=== PATIENT | female | born 1965 | race Hispanic/Latino ===

== ENCOUNTER 2016-12-17 14:37 | Inpatient (IN) | payer MEDICAID ==
[2016-12-17 15:44] LABS: BASO # 0.1 K/uL (0.0-0.2); EOS # 0.1 K/uL (0.0-0.7); EOS % 1.2 % (0.0-4.0); HEMATOCRIT 37.3 % (34.0-47.0); LYMPH # 3.8 K/uL (1.0-4.3); LYMPH % 48.5 % (20.0-40.0); MEAN CELL VOLUME 97.3 fL (81.0-99.0); MEAN CORPUSCULAR HEMOGLOBIN 33.8 pg (27.0-31.0); MEAN CORPUSCULAR HGB CONC 34.7 g/dL (33.0-37.0); MONO # 0.5 K/uL (0.0-0.8); MONO % 6.5 % (0.0-10.0); NRBC % 0.1 % (0.0-2.0); RED CELL DISTRIBUTION WIDTH 12.7 % (11.5-14.5); WHITE BLOOD COUNT 7.7 K/uL (4.8-10.8)
[2016-12-17 15:48] LABS: RBC URINE < 1 /hpf (0-3); URINE BILIRUBIN NEGATIVE (NEGATIVE); URINE BLOOD NEGATIVE (NEGATIVE); URINE COLOR Straw (YELLOW); URINE GLUCOSE (UA) NORMAL (Normal); URINE KETONE NEGATIVE (NEGATIVE); URINE LEUKOCYTE ESTERASE NEG Leu/uL (Negative); URINE PROTEIN NEGATIVE (NEGATIVE); URINE UROBILINOGEN NORMAL mg/dL (0.2-1.0)
[2016-12-17 15:50] LABS: CHLORIDE 99 mmol/L (98-107); SODIUM 134 mmol/L (132-148)
[2016-12-17 15:51] LABS: POTASSIUM 3.7 mmol/L (3.6-5.2)
[2016-12-17 15:53] LABS: ALKALINE PHOSPHATASE 116 U/L (38-126); AST/SGOT 397 U/L (14-36); BILIRUBIN,TOTAL 0.8 mg/dL (0.2-1.3); BLOOD UREA NITROGEN 11 mg/dL (7-17); CARBON DIOXIDE 24 mmol/L (22-30); GFR AFRICAN-AMERICAN > 60; GLUCOSE,RANDOM 93 mg/dL (65-105); TOTAL PROTEIN 7.5 g/dL (6.3-8.3)
[2016-12-17 15:54] LABS: ALCOHOL SERUM 225 mg/dl (0-10); ALT/SGPT 354 U/L (9-52); CALCIUM 8.5 mg/dl (8.6-10.4)
--- NOTE | 2016-12-17 16:12 | C.PDOC ---
History Of Present Illness 51 year old female presents to the emergency department seeking detox from alcohol. Patient states she has about 4-5 large beers a day with last drink just prior to arrival. She denies any physical complaints, suicidal, or homicidal ideations. Time Seen by Provider: 12/17/16 15:10 Chief Complaint (Nursing): Psychiatric Evaluation History Per: Patient History/Exam Limitations: no limitations Suicide/Self Injury Attempted (Context): None Severity: None Pain Scale Rating Of: 0 Associated Symptoms: denies: Suicidal Thoughts, Suicidal Plan Involuntary Hold By: None Recent travel outside of the [place]: No Past Medical History Reviewed: Historical Data, Nursing Documentation, Vital Signs Vital Signs: Last Vital Signs Temp 99.0 F 12/17/16 20:21 Pulse 78 12/17/16 20:21 Resp 18 12/17/16 20:21 BP 116/80 12/17/16 20:21 Pulse Ox 98 12/17/16 18:47 - Medical History PMH: Anxiety, Depression, Fractures (right ankle), GERD, HTN - [facility] Procedures ALCOHOL DETOXIFICATION (10/09/14) ALCOHOLISM COUNSELLING (08/14/13) INDIVID PSYCHOTHERAP NEC (07/31/14) INJECT/INFUSE NEC (04/17/14) OTHER GROUP THERAPY (07/31/14) PSYCHIA INTERV/EVAL NEC (08/10/13) Family History: States: Unknown Family Hx - Social History Hx Tobacco Use: Yes Hx Alcohol Use: Yes Hx Substance Use: No - Immunization History Hx Tetanus Toxoid Vaccination: Yes Hx Influenza Vaccination: No Hx Pneumococcal Vaccination: No Review Of Systems Constitutional: Negative for: Fever, Chills Cardiovascular: Negative for: Chest Pain Respiratory: Negative for: Shortness of Breath Gastrointestinal: Negative for: Nausea, Vomiting, Abdominal Pain, Diarrhea Psych: Negative for: Suicidal ideation Physical Exam - Physical Exam Appears: Non-toxic, No Acute Distress, Other (Patient has no signs of withdrawl. ) Skin: Warm, Dry Head: Atraumatic Eye(s): bilateral: Normal Inspection, EOMI Oral Mucosa: Moist Neck: Supple Chest: Symmetrical, No Deformity Cardiovascular: Rhythm Regular Respiratory: Normal Breath Sounds, No Rhonchi, No Wheezing Gastrointestinal/Abdominal: Soft, No Tenderness, No Distention, No Guarding, No Rebound Neurological/Psych: Oriented x3, Normal Speech, Normal Cognition, Normal Cranial Nerves, Normal Motor, Normal Sensation ED Course And Treatment - Laboratory Results Result Diagrams: 12/17/16 15:33 12/17/16 15:33 O2 Sat by Pulse Oximetry: 97 Disposition - Disposition Disposition: HOSPITALIZED Disposition Time: 18:00 Condition: GOOD - Clinical Impression Clinical Impression: Alcohol dependence - Scribe Statement The provider has reviewed the documentation as recorded by the Katjaibbibiana Solorzano All medical record entries made by the Katjaibbibiana were at my direction and personally dictated by me. I have reviewed the chart and agree that the record accurately reflects my personal performance of the history, physical exam, medical decision making, and the department course for this patient. I have also personally directed, reviewed, and agree with the discharge instructions and disposition.
--- NOTE | 2016-12-17 20:40 | PCM.BM ---
<SaraiGeraldine Hollis - Last Filed: 12/17/16 20:37> Treatment Plan Problems - Problems identified on initial assessmt Ineffective Coping Skills Date Initiated: 12/17/16 Time Initiated: 20:38 Assessment reference: NA Status: Active Treatment assets and liabiliti Patient Assests: ADL independent Patient Liabilities: substance abuse - Milieu Protocol Maintain good personal hygiene: daily Encourage regular showers, daily Remind patient to perform daily oral care, other Assist patient to perform ADL's (PRN) Maintain personal safety: every shift Educate patient to report safety concerns to staff, every shift Monitor environment for contraband/sharps Medication safety: Monitor for expected outcome, potential side effects: every shift, Assess barriers to learning: every shift, Assess readiness for medication education: every shift <Gibran Mccormick - Last Filed: 12/20/16 14:28> - Diagnosis (1) Alcohol dependence Status: Acute Interventions: 12/20/16 14:28 * Assess 7x/week regarding severity of withdrawal * Educate regarding risks, benefits, side effects and alternatives of medications * Use Motivational Interviewing for abstinence * Use CBT for relapse prevention * Medication management for withdrawal symptoms * Encourage medication assisted treatment * <Jessica Sawyer - Last Filed: 12/22/16 08:22> Family Contact Family involvement: Patient does not wish Family/SO involvement Family contact: Patient declines to allow family contact at present - Goals for Treatment Patient goals for treatment: Transition from detox to [facility] for co-occurring treatment outpatient. Discharge/Continuing Care - Education Needs Education Needs: Patient Medication, Patient Diagnosis/Disease Process, Patient Coping Skills, Patient Anger Management skills, Patient Community resources - Discharge Discharge Criteria: No longer exhibiting s/s of withdrawal, Reduction of target symptoms Discharge to:: Home - Treatment Team Participation Patient/Family/SO Statement: 12/22/16 08:22 "I wanna go across the street to your outpatient program". Discussed with Family/SO: No Was Patient/Family/SO present at Treatment Team Meeting: Yes
[2016-12-18] MEDS: Multiple Vitamins Tab PO SCH (09:43)
--- NOTE | 2016-12-18 22:24 | PCM.PSYCH ---
Initial Psychiatric Evaluation - Initial Psychiatric Evaluation Chief Complaint (in patient's own words): I want etoh detox History of Present Illness and Precipitating Events: This is a 51 year old female presents to the emergency department seeking detox from alcohol. Patient states she has about 4-5 large beers a day with last drink just prior to arrival at ED. Pt reported that she start drinking etoh at the age of 18. she stated she her symptoms started worsening for 3 months as she started drinking large 4-5 cans of beers with henessey.+ve CAGE questionnaire, positive withdrawal symptoms such as shakes, headaches, tremors, n/v. No sz. or black ut. She stated that she was not eating or drinking water good for last 1 week. She reported her she was taking Klonopin daily which was provided by PCP Dr. Wolf. She denied depressive symptoms. She denies any physical complaints, suicidal, or homicidal ideations. She denied A/V/H, Tactile hallucination. She reported she had PTSD, but on inquiring she denied all PTSD sx. Current Medications: Active Medications Generic Name Dose Route Start Last Admin Trade Name Freq PRN Reason Stop Dose Admin Enalapril Maleate 10 mg 12/18/16 12:49 12/18/16 18:00 Vasotec PO 10 mg BID KEVIN Administration Folic Acid 1 mg 12/18/16 10:00 12/18/16 09:43 Folic Acid PO 1 mg DAILY KEVIN Administration Lorazepam 2 mg 12/17/16 20:45 12/18/16 20:13 Ativan PO 12/22/16 20:44 2 mg Q4 KEVIN Administration Taper Lorazepam 1 mg 12/17/16 20:37 12/18/16 05:38 Ativan PO 1 mg Q4H PRN Administration Symptoms of alcohol withdrawl Multivitamins 1 tab 12/18/16 10:00 12/18/16 09:43 Hexavitamin PO 1 tab DAILY KEVIN Administration Thiamine HCl 100 mg 12/18/16 10:00 12/18/16 09:43 Vitamin B1 Tab PO 100 mg DAILY KEVIN Administration Trazodone HCl 50 mg 12/17/16 20:37 Desyrel PO HS PRN Insomnia Past Psychiatric History - Past Psychiatric History Prior Professional Help: multiple detox in past Prior Psychiatric Treatment: last detox was at [facility] [place] in 08/2016 History of Abuse: denied History of ETOH/Drug Use: please see HPI, She reported that she smokes 3-4 cigarette per day. she has nicotine craving and asked nicotine patch Pertinent Medical Hx (Current Medical&Sleep Prob, Allergies): Allergies Allergy/AdvReac Type Severity Reaction Status Date / Time No Known Allergies Allergy Verified 12/17/16 15:06 Enalapril Maleate [Vasotec] 10 mg PO BID 07/14/16 Ranitidine HCl [Zantac] 300 mg PO DAILY 07/14/16 clonazePAM [Klonopin] 1 mg PO TID 07/14/16 hydroCHLOROthiazide [Microzide] 12.5 mg PO DAILY 07/14/16 Clonazepam [Klonopin] 1 mg PO DAILY #5 tab 08/06/16 Review of Systems - Review of Systems All systems: reviewed and no additional remarkable complaints except (see HPI) Mental Status Examination - Personal Presentation Personal Presentation: Looks stated age Additional comments: positive tremors and tongue fasiculations, cooperative, fair grooming - Affect Affect: Constricted - Motor Activity Motor Activity: Calm - Reliability in Providing Information Reliability in Providing Information: Good - Speech Speech: Other (slurred) - Mood Mood: Anxious - Formal Thought Process Formal Thought Process: No Impairment - Hallucinations/Delusions Hallucinations: Other (none reported) - Obsessions/Compulsions Obsessions: No Compulsions: No - Cognitive Functions Orientation: Person, Place, Situation, Time Sensorium: Alert Attention/Concentration: Attentive Estimate of Intelligence: Average Judgement: Intact, as evidence by: Good judgement, Intact, as evidence by: Insight regarding need for hospitalization Memory: Recent intact, as evidence by: Ability to recall events of the day Additional comments: no SI, HI, intent or plan - Strength & Assets Inventory Strength & Assets Inventory: Family support, Education, Employment history, Skills - Limitations Limitations: Other (chronic etoh use problem) DSM 5 DX - DSM 5 DSM 5 Diagnosis: Alcohol use disorder severe, withdrawal - Recommended/Plan of Treatment Treatment Recommendations and Plan of Treatment: Ativan detox Gabapentin for augmentation As needed meds and vitamins Attend groups and activities [place] for abstinence and CBT for relapse prevention Support and psychoeducation Consider and encourage MAT Refer to after care 33 min Projected ELOS: 5 days Prognosis: fair Discharge Plan and Discharge Criteria: as per SW - Smoking Cessation Smoking Cessation Initiated: Yes
[2016-12-19] MEDS: Multiple Vitamins Tab PO SCH (09:12)
[2016-12-19] MEDS: Aluminum Hydroxide/Magnesium Hydroxide Susp (30 mL) PO PRN (13:03)
[2016-12-19] MEDS: Pantoprazole 20 mg EC Tab PO SCH (17:34)
--- NOTE | 2016-12-19 17:54 | PCM.PYCHPN ---
Psychiatric Progress Note - Psychiatric Progress Note Patient seen today, length of contact: 17 MINUTES Patient Chief Complaint: "I have GERD problem" Problems Identified/Issues Discussed: The pt is seen, chart reviewed, case discussed with staff. The pt is compliant with medications and reports no side-effects. She reported that she had GERD problem and want to start on medication. Her BP was high and she was started on her anti HTN home meds after verifying with the pharmacy. Symptoms are improving but needs more time to stabilize. After care discussed, support and psychoeducation given. Medical Problems: Alcohol use disorder severe, withdrawal HTN DSM 5 Symptoms Update: Alcohol use disorder severe, withdrawal Medication Change: Yes (pt is on ativan taper) Medical Record Reviewed: Yes Mental Status Examination - Cognitive Function Orientation: Person, Place, Situation, Time Memory: Intact Attention: WNL Concentration: WNL Association: WNL Fund of Knowledge: WNL Decription of patient's judgement and insights: fair/fair - Mood Mood: Anxious - Affect Affect: Constricted - Speech Speech: Appropriate - Formal Thought Process Formal Thought Process: No Impairment Psychotic Thoughts and Behaviors: no A/V/H - Suicidal Ideation Suicidal Ideation: No - Homicidal Ideation Homicidal Ideation: No Goal/Treatment Plan - Goal/Treatment Plan Need for Continued Stay: Remain at risks for inpatient hospitalization, Discharge may exacerbated symptoms Progress Toward Problem(s) and Goals/Treatment Plan: Ativan detox Gabapentin for augmentation As needed meds and vitamins Attend groups and activities [place] for abstinence and CBT for relapse prevention Support and psychoeducation Consider and encourage MAT Refer to after care 17 min Estimated Date of D/C: 12/22/16 - Smoking Cessation Smoking Cessation Initiated: Yes
[2016-12-20] MEDS: Pantoprazole 20 mg EC Tab PO SCH ×2 (09:03→09:59)
[2016-12-20] MEDS: Multiple Vitamins Tab PO SCH ×2 (09:04→09:59)
[2016-12-20 14:11] LABS: CHLORIDE 94 mmol/L (98-107); POTASSIUM 4.1 mmol/L (3.6-5.2); SODIUM 133 mmol/L (132-148)
[2016-12-20 14:13] LABS: AST/SGOT 161 U/L (14-36); BILIRUBIN,TOTAL 0.5 mg/dL (0.2-1.3); CARBON DIOXIDE 28 mmol/L (22-30); GFR AFRICAN-AMERICAN > 60; TOTAL PROTEIN 7.1 g/dL (6.3-8.3)
[2016-12-20 14:14] LABS: ALKALINE PHOSPHATASE 105 U/L (38-126); ALT/SGPT 208 U/L (9-52); BLOOD UREA NITROGEN 15 mg/dL (7-17); GLUCOSE,RANDOM 109 mg/dL (65-105)
--- NOTE | 2016-12-20 14:28 | PCM.PYCHPN ---
Psychiatric Progress Note - Psychiatric Progress Note Patient seen today, length of contact: 18 min Patient Chief Complaint: "A little better" Problems Identified/Issues Discussed: The pt is seen, chart reviewed, case discussed with staff. Support given, CBT and ME used briefly No new symptoms reported, improving slowly and needs some more time No SEs from medications, risks discussed. After care discussed Medication Change: Yes (detox adjusted) Medical Record Reviewed: Yes Mental Status Examination - Cognitive Function Orientation: Person, Place, Situation, Time Memory: Intact Attention: WNL Concentration: WNL Association: WNL Fund of Knowledge: WNL - Mood Mood: Anxious - Affect Affect: Constricted - Speech Speech: Appropriate - Formal Thought Process Formal Thought Process: No Impairment - Suicidal Ideation Suicidal Ideation: No - Homicidal Ideation Homicidal Ideation: No Goal/Treatment Plan - Goal/Treatment Plan Need for Continued Stay: Remain at risks for inpatient hospitalization, Discharge may exacerbated symptoms Progress Toward Problem(s) and Goals/Treatment Plan: Continue medications Support and psychoeducation daily Attend groups and activities daily After care planning by RYAN Estimated Date of D/C: 12/22/16
[2016-12-20 15:03] LABS: THYROID STIMULATING HORMONE 1.82 mIU/L (0.46-4.68)
[2016-12-20] MEDS: Aluminum Hydroxide/Magnesium Hydroxide Susp (30 mL) PO PRN (16:23)
--- NOTE | 2016-12-21 08:54 | PCM.PYCHPN ---
Psychiatric Progress Note - Psychiatric Progress Note Patient seen today, length of contact: 16 min Patient Chief Complaint: "I feel pretty good" Problems Identified/Issues Discussed: Patient is seen, chart reviewed, and case discussed with staff. The patient is compliant with medications and reports no side effects. Patient says she is feeling "pretty good." She slept okay and had no shakiness or sweating overnight. Her symptoms are improving but need more time to stabilize. After care discussed, support and psychoeducation given. Patient planning to go to [facility] after discharge. Medication Change: Yes (detox adjusted) Medical Record Reviewed: Yes Mental Status Examination - Cognitive Function Orientation: Person, Place, Situation, Time Memory: Intact Attention: WNL Concentration: WNL Association: WNL Fund of Knowledge: WNL - Mood Mood: Neutral - Affect Affect: Constricted - Speech Speech: Appropriate - Formal Thought Process Formal Thought Process: No Impairment - Suicidal Ideation Suicidal Ideation: No - Homicidal Ideation Homicidal Ideation: No Goal/Treatment Plan - Goal/Treatment Plan Need for Continued Stay: Remain at risks for inpatient hospitalization, Discharge may exacerbated symptoms Progress Toward Problem(s) and Goals/Treatment Plan: Continue medications. Support and psychoeducation daily. Attend groups and activities daily. After care planning-- plan for IOP. Estimated Date of D/C: 12/22/16 - Smoking Cessation Smoking Cessation Initiated: Yes
[2016-12-21] MEDS: Pantoprazole 20 mg EC Tab PO SCH (09:10)
[2016-12-21] MEDS: Multiple Vitamins Tab PO SCH (09:11)
[2016-12-21] MEDS: Aluminum Hydroxide/Magnesium Hydroxide Susp (30 mL) PO PRN (17:11)
--- NOTE | 2016-12-22 06:27 | CP.PCM.PN ---
Subjective - Date & Time of Evaluation Date of Evaluation: 12/22/16 Time of Evaluation: 06:25 - Subjective Subjective: House Doctor Note: Asked to evaluate patient after rolling off side of bed while sleeping. Patient states she fell onto her left hip/ buttock, denies hitting her head or losing consciousness. Patient did not report event at the time of occurrence. Patient ambulating well, denies pain at site. On exam, no ecchymosis noted to left hip. Full ROM, 5/5 muscle strength b/l lower extremities. CN II-XII intact, pt AAOx3. Lungs CTA b/l and heart sounds S1, S2 normal. Patient instructed to inform staff if she develops pain. Objective - Vital Signs/Intake and Output Vital Signs (last 24 hours): Temp Pulse Resp BP Pulse Ox 98.7 F 95 H 20 107/74 95 12/22/16 06:00 12/22/16 06:00 12/22/16 06:00 12/22/16 06:00 12/22/16 06:00 - Medications Medications: Current Medications Al Hydrox/Mg Hydrox/Simethicone (Maalox 30 Ml) 30 ml PO TID PRN PRN Reason: Indigestion / Heartburn Last Admin: 12/21/16 17:11 Dose: 30 ml Enalapril Maleate (Vasotec) 10 mg PO BID [facility] Last Admin: 12/21/16 17:12 Dose: 10 mg Folic Acid (Folic Acid) 1 mg PO DAILY [facility] Last Admin: 12/21/16 09:10 Dose: 1 mg Hydrochlorothiazide (Microzide) 12.5 mg PO DAILY [facility] Last Admin: 12/21/16 09:10 Dose: 12.5 mg Ibuprofen (Motrin Tab) 400 mg PO Q4 PRN Last Admin: 12/21/16 13:41 Dose: 400 mg Lorazepam (Ativan) 1 mg PO Q4H PRN PRN Reason: Symptoms of alcohol withdrawl Last Admin: 12/21/16 15:52 Dose: 1 mg Lorazepam (Ativan) 2 mg PO BID [facility] Stop: 12/22/16 10:01 Last Admin: 12/21/16 17:12 Dose: 2 mg Multivitamins (Hexavitamin) 1 tab PO DAILY [facility] Last Admin: 12/21/16 09:11 Dose: 1 tab Nicotine (Nicoderm Cq) 1 patch TD DAILY KEVIN Last Admin: 12/21/16 09:10 Dose: 1 patch Pantoprazole Sodium (Protonix Ec Tab) 20 mg PO DAILY KEVIN Last Admin: 12/21/16 09:10 Dose: 20 mg Thiamine HCl (Vitamin B1 Tab) 100 mg PO DAILY [facility] Last Admin: 12/21/16 09:10 Dose: 100 mg Trazodone HCl (Desyrel) 50 mg PO HS PRN PRN Reason: Insomnia Last Admin: 12/19/16 21:04 Dose: 50 mg - Labs Labs: 12/20/16 13:57
[2016-12-22] MEDS: Multiple Vitamins Tab PO SCH (09:11)
[2016-12-22] MEDS: Pantoprazole 20 mg EC Tab PO SCH (09:11)
[2016-12-22 09:19] VITALS: BP 130/88; PULSE 81; RESP 18; TEMP 98; O2SAT 96
--- NOTE | 2016-12-22 10:21 | PCM.PYCHDC ---
Mental Status Examination - Mental Status Examination Orientation: Person, Place, Situation, Time Memory: Intact Mood: Neutral Affect: Constricted Speech: Soft Attention: WNL Concentration: WNL Association: WNL Fund of Knowledge: WNL Formal Thought Process: No Impairment Description of patient's judgement and insight: good, fair Psychotic Thoughts and Behaviors: denies any AVH Suicidal Ideation: No Current Homicidal Ideation?: No Discharge Summary - Discharge Note Reason for Hospitalization: This is a 51 year old female presents to the emergency department seeking detox from alcohol. Patient states she has about 4-5 large beers a day with last drink just prior to arrival at ED. Pt reported that she start drinking etoh at the age of 18. she stated she her symptoms started worsening for 3 months as she started drinking large 4-5 cans of beers with henessey.+ve CAGE questionnaire, positive withdrawal symptoms such as shakes, headaches, tremors, n/v. No sz. or black ut. She stated that she was not eating or drinking water good for last 1 week. She reported her she was taking Klonopin daily which was provided by PCP Dr. Wolf. She denied depressive symptoms. She denies any physical complaints, suicidal, or homicidal ideations. She denied A/V/H, Tactile hallucination. She reported she had PTSD, but on inquiring she denied all PTSD sx. Consultations:: List each consultation separately and include: 1. Reason for request. 2. Findings. 3. Follow-up Summary of Hospital Course include:: 1. Description of specific treatment plan utilized for patients during their course of treatmen. 2. Summarize the time- course for resolution of acute symptoms and/or regressed behaviors. 3. Describe issues identified and worked on during hospitalization. 4. Describe medication utilized. 5. Describe medical problems identified and treated. 6. Reassessment of suicide risk Summary of Hospital Course: During the course of her stay, pt started progressively improving and she no longer remained irritable and anxious. She tolerated the withdrawal protocol very well. She didnt have any shakes, sweating or any other withdrawal symptoms. She denied any feelings of hopelessness, helplessness, and worthlessness, denied any problems with the sleep and appetite, denied suicidal ideation or homicidal ideation, and denied any auditory or visual hallucinations. Some changes were made in her current medications. She was discharged on the following medications. She tolerated the detox medications very well and denied any side effects. - Final Diagnosis (DSM 5) Condition upon Discharge: GOOD DSM 5: Alcohol use disorder severe, withdrawal Disposition: HOME/ ROUTINE Follow-up Treatment Plan: Education: Pt was educated and counseled about the risks and benefits of taking and not taking medications. Pt was educated and counseled about the risks of drinking and abusing drugs. Pt was educated and counseled to go to the ER or call 911 if pt develop suicidal ideation or homicidal ideation, worsening of symptoms or severe side effects of the meds. Prescriptions/Medication Reconciliation: Enalapril Maleate [Vasotec] 10 mg PO BID #60 tab hydroCHLOROthiazide [Microzide] 12.5 mg PO DAILY #30 cap Pantoprazole [Protonix EC Tab] 20 mg PO DAILY #30 ect - Smoking Cessation Smoking Cessation Medication prescribed: No - Antipsychotic Medications Pt discharged on 2 or more routine antipsychotic medications: No
== END 2016-12-22 10:45 | disposition home or self-care (01) | DRG 751 ==
LOC: C.ER 14:37 → C.7D 19:19
PROVIDERS: ADMIT Psychiatry & Neurology Psychiatry; ATTEND Psychiatry & Neurology Psychiatry
PROC: HZ2ZZZZ Detoxification Services for Substance Abuse Treatment (ICD-10-PCS; principal; 2016-12-17)
PROC: HZ46ZZZ Group Counseling for Substance Abuse Treatment, Psychoeducation (ICD-10-PCS; 2016-12-17)
PROC: HZ59ZZZ Individual Psychotherapy for Substance Abuse Treatment, Supportive (ICD-10-PCS; 2016-12-17)
DX: F10.230 Alcohol dependence with withdrawal, uncomplicated (principal); F43.10 Post-traumatic stress disorder, unspecified; K21.9 Gastro-esophageal reflux disease without esophagitis; I10 Essential (primary) hypertension; F17.210 Nicotine dependence, cigarettes, uncomplicated

== ENCOUNTER 2018-07-03 06:18 | Emergency (ER) | payer MEDICAID ==
[2018-07-03 06:18] VITALS: BMI 31.7
--- NOTE | 2018-07-03 06:34 | C.PDOC ---
History Of Present Illness 52 year old female with PMHx is brought to the ED by EMS for evaluation of anxiety. Patient was recently seen at [facility] for same presentation, patient was given 0.5 mg of xanax there. Patient requesting for more medications. Patient denies SI/HI, hallucinations, injury, fall, trauma, CP, SOB. Chief Complaint (Nursing): Anxiety History Per: Patient History/Exam Limitations: no limitations Onset/Duration Of Symptoms: Hrs Current Symptoms Are (Timing): Still Present Suicide/Self Injury Attempted (Context): None Modifying Factor(s): Narcotics Associated Symptoms: Anxiety. denies: Depression, Suicidal Thoughts, Suicidal Plan Recent travel outside of the [place]: No Additional History Per: Patient Past Medical History Reviewed: Historical Data, Nursing Documentation, Vital Signs - Medical History PMH: Anxiety, Depression, Gastritis, GERD Denies: Diabetes, Hepatitis, HIV, HTN, Chronic Kidney Disease, Seizures, Sexually Transmitted Disease Surgical History: No Surg Hx - [facility] Procedures ALCOHOL DETOXIFICATION (10/09/14) ALCOHOLISM COUNSELLING (08/14/13) DETOXIFICATION SERVICES FOR SUBSTANCE ABUSE TREATMENT (12/17/16) GROUP SUPER[employer]OR [employer] PROCESSING FOR SUBSTANCE ABUSE TREATMENT, PSYCHOEDUCATION (12/17/16) INDIV PSYCHOTHERAPY FOR SUBSTANCE ABUSE TREATMENT, SUPPORT (12/17/16) INDIVID PSYCHOTHERAP NEC (07/31/14) INDIVIDUAL PSYCHOTHERAPY, COGNITIVE-BEHAVIORAL (03/25/18) INJECT/INFUSE NEC (04/17/14) OTHER GROUP THERAPY (07/31/14) PSYCHIA INTERV/EVAL NEC (08/10/13) Family History: States: Unknown Family Hx - Social History Hx Tobacco Use: Yes Hx Alcohol Use: Yes Hx Substance Use: No (denies) Review Of Systems Constitutional: Negative for: Fever, Chills Cardiovascular: Negative for: Chest Pain Respiratory: Negative for: Shortness of Breath Gastrointestinal: Negative for: Nausea, Vomiting, Abdominal Pain Psych: Positive for: Anxiety Physical Exam - Physical Exam Appears: Non-toxic, No Acute Distress Skin: Normal Color, Warm, Dry Head: Atraumatic, Normacephalic Eye(s): bilateral: Normal Inspection Neck: Normal ROM, Supple Chest: Symmetrical Cardiovascular: Rhythm Regular Respiratory: Normal Breath Sounds, No Rales, No Rhonchi, No Wheezing Extremity: Normal ROM, No Tenderness, No Swelling Neurological/Psych: Oriented x3, Normal Speech, Normal Cognition Gait: Steady ED Course And Treatment Pulse Ox Interpretation: Normal Medical Decision Making Medical Decision Making: [place] [facility] record was reviewed showed that patient gets 90 tablets of Xanax every month. last time patient received her xanax was on 06/06/18. Disposition Counseled Patient/Family Regarding: Diagnosis - Disposition Referrals: [facility] [Outside] Disposition: HOME/ ROUTINE Disposition Time: 06:33 Condition: STABLE Instructions: Drug Abuse and Drug Addiction (DC) Forms: CoverMe (Angolan) - POA Present On Arrival: None - Clinical Impression Clinical Impression: Drug abuse - Scribe Statement The provider has reviewed the documentation as recorded by the Scribe Rcaiel Fuller All medical record entries made by the Scribe were at my direction and personally dictated by me. I have reviewed the chart and agree that the record accurately reflects my personal performance of the history, physical exam, medical decision making, and the department course for this patient. I have also personally directed, reviewed, and agree with the discharge instructions and disposition.
[2018-07-03 06:47] VITALS: BP 150/83; TEMP 98.2
[2018-07-03 06:54] VITALS: PULSE 80; RESP 14; O2SAT 99
== END 2018-07-03 06:54 | disposition home or self-care (01) ==
LOC: C.ER 06:18
DX: F19.10 Other psychoactive substance abuse, uncomplicated (principal)

== ENCOUNTER 2018-07-03 15:26 | Inpatient (IN) | payer MEDICAID ==
[2018-07-03 15:26] VITALS: BMI 34.3
[2018-07-03 17:37] LABS: ALB/GLOB RATIO 1.2 (1.0-2.1); ALBUMIN 4.8 g/dL (3.5-5.0); ALT/SGPT 155 U/L (9-52); AST/SGOT 144 U/L (14-36); BLOOD UREA NITROGEN 9 mg/dL (7-17); CALCIUM 9.1 mg/dl (8.6-10.4); GFR NON-AFRICAN AMERICAN > 60
[2018-07-03 17:39] LABS: BASO % 0.7 % (0.0-2.0); EOS # 0.1 K/uL (0.0-0.7); EOS % 1.2 % (0.0-4.0); HEMOGLOBIN 13.6 g/dL (11.0-16.0); LYMPH # 3.1 K/uL (1.0-4.3); LYMPH % 42.8 % (20.0-40.0); MEAN CELL VOLUME 95.5 fL (81.0-99.0); MEAN CORPUSCULAR HEMOGLOBIN 32.3 pg (27.0-31.0); MEAN CORPUSCULAR HGB CONC 33.8 g/dL (33.0-37.0); MEAN PLATELET VOLUME 8.9 fL (7.2-11.7); MONO # 0.6 K/uL (0.0-0.8); MONO % 8.2 % (0.0-10.0); NEUT # 3.5 K/uL (1.8-7.0); NEUT % 47.1 % (50.0-75.0); NRBC % 0.2 % (0.0-2.0); RBC 4.21 Mil/uL (3.80-5.20); RED CELL DISTRIBUTION WIDTH 13.3 % (11.5-14.5); WHITE BLOOD COUNT 7.3 K/uL (4.8-10.8)
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
[2018-07-03 18:02] LABS: SQUAMOUS EPITHIAL < 1 /hpf (0-5); URINE BILIRUBIN NEGATIVE (NEGATIVE); URINE BLOOD NEGATIVE (NEGATIVE); URINE CLARITY Clear (Clear); URINE COLOR Yellow (YELLOW); URINE GLUCOSE (UA) NORMAL (Normal); URINE LEUKOCYTE ESTERASE NEG Leu/uL (Negative); URINE PROTEIN NEGATIVE (NEGATIVE)
[2018-07-03 18:04] LABS: BARBITURATES, UR NEGATIVE (NEGATIVE); OPIATES, UR NEGATIVE (NEGATIVE); PHENCYCLIDINE, UR NEGATIVE (NEGATIVE)
[2018-07-03 18:10] LABS: BENZODIAZEPINES, UR POSITIVE (NEGATIVE)
--- NOTE | 2018-07-03 19:41 | PCM.BM ---
Treatment Plan Problems - Problems identified on initial assessmt knowledge drlicit; substance use Date Initiated: 07/03/18 Time Initiated: 19:39 Assessment reference: NA Status: Active low motivation to change Date Initiated: 07/03/18 Time Initiated: 19:41 Assessment reference: NA Status: Active ineffective coping Date Initiated: 07/03/18 Time Initiated: 19:41 Assessment reference: NA Status: Active denial Date Initiated: 07/03/18 Time Initiated: 19:42 Assessment reference: NA Status: Active Treatment assets and liabiliti Patient Assests: adapts well, cooperative, resourceful, negotiates basic needs Patient Liabilities: substance abuse, medical problems - Milieu Protocol Maintain good personal hygiene: daily Encourage regular showers, daily Remind patient to perform daily oral care, daily Assist patient to perform ADL's Conduct patient checks and document Observation sheet: Q15 minutes Maintain personal safety: every shift Educate patient to report safety concerns to staff, every shift Monitor environment for contraband/sharps Medication safety: Monitor for expected outcome, potential side effects: every shift, Assess barriers to learning: every shift, Assess readiness for medication education: every shift
--- NOTE | 2018-07-03 19:58 | PCM.BM ---
<Tacos Watkins - Last Filed: 07/03/18 19:57> Treatment Plan Problems - Problems identified on initial assessmt knowledge drlicit; substance use Date Initiated: 07/03/18 Time Initiated: 19:39 Assessment reference: NA Status: Active low motivation to change Date Initiated: 07/03/18 Time Initiated: 19:41 Assessment reference: NA Status: Active ineffective coping Date Initiated: 07/03/18 Time Initiated: 19:41 Assessment reference: NA Status: Active denial Date Initiated: 07/03/18 Time Initiated: 19:42 Assessment reference: NA Status: Active knowledge deficit alcohol Date Initiated: 07/03/18 Time Initiated: 19:58 Assessment reference: NA Status: Active Treatment assets and liabiliti Patient Assests: adapts well, cooperative, resourceful, negotiates basic needs Patient Liabilities: substance abuse, medical problems - Milieu Protocol Maintain good personal hygiene: daily Encourage regular showers, daily Remind patient to perform daily oral care, daily Assist patient to perform ADL's Conduct patient checks and document Observation sheet: Q15 minutes Maintain personal safety: every shift Educate patient to report safety concerns to staff, every shift Monitor environment for contraband/sharps Medication safety: Monitor for expected outcome, potential side effects: every shift, Assess barriers to learning: every shift, Assess readiness for medication education: every shift <Jessica Sawyer - Last Filed: 07/06/18 14:18> Family Contact Family contact name: roommate Family contacted how many times per week?: 3 - Goals for Treatment Patient goals for treatment: Complete detox and transition to outpatient therapy. Discharge/Continuing Care - Education Needs Education Needs: Patient Medication, Patient Diagnosis/Disease Process, Patient Coping Skills, Patient Anger Management skills, Patient Placement options, Patient Community resources, Patient Health Practices/Safety (hx. alcohol use disorder) - Discharge Discharge Criteria: Ability to care for self, No longer exhibiting s/s of withdrawal, Reduction of target symptoms Discharge to:: Home - Treatment Team Participation Patient/Family/SO Statement: 07/06/18 14:20 "I wanna go to [facility] from here..." Discussed with Family/SO: No Was Patient/Family/SO present at Treatment Team Meeting: Yes <Gibran Mccormick - Last Filed: 07/09/18 18:13> - Diagnosis (1) Delusional disorder Status: Acute Interventions: 07/04/18 18:12 * Assess/adjust medications daily and /or as needed * Discuss risks, benefits, sided effects and alternatives of medications * See patient on an individual basis 7x/week to assess level of delusional thoughts/ideation (2) Alcohol dependence Status: Acute Interventions: 07/04/18 18:13 * Assess 7x/week regarding severity of withdrawal * Educate regarding risks, benefits, side effects and alternatives of medications * Use Motivational Interviewing for abstinence * Use CBT for relapse prevention * Medication management for withdrawal symptoms * Encourage medication assisted treatment *
[2018-07-03] MEDS ORDERED: Magnesium Hydroxide Susp 30 ml UD PO PRN (21:15)
[2018-07-03] MEDS: Aluminum Hydroxide/Magnesium Hydroxide Susp (30 mL) PO PRN (21:54)
[2018-07-04] MEDS: Multiple Vitamins Tab PO SCH (09:30)
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
[2018-07-04] MEDS: Pantoprazole 40 mg EC Tab PO SCH (12:15)
[2018-07-04] MEDS: Aluminum Hydroxide/Magnesium Hydroxide Susp (30 mL) PO PRN (16:48)
[2018-07-05] MEDS: Multiple Vitamins Tab PO SCH (09:31)
[2018-07-05] MEDS: Pantoprazole 40 mg EC Tab PO SCH (09:32)
--- NOTE | 2018-07-05 13:53 | PCM.PYCHPN ---
Psychiatric Progress Note - Psychiatric Progress Note Patient seen today, length of contact: 16 min Patient Chief Complaint: "I am OK" Problems Identified/Issues Discussed: The pt is seen, chart reviewed, case is discussed with staff. The pt is compliant with medications and reports no side-effects. Symptoms are improving but needs more time to stabilize and to avoid relapse. Pt attends groups and activities. Support given, psycho-education provided. After care discussed. Medication Change: Yes (detox changes daily) Medical Record Reviewed: Yes Mental Status Examination - Cognitive Function Orientation: Person, Place, Situation, Time Memory: Intact Attention: WNL Concentration: Poor Association: WNL Fund of Knowledge: Poor - Mood Mood: Anxious - Affect Affect: Constricted - Speech Speech: Appropriate - Formal Thought Process Formal Thought Process: Delusions, Paranoia, Loosening of associations (mild) - Suicidal Ideation Suicidal Ideation: No - Homicidal Ideation Homicidal Ideation: No Goal/Treatment Plan - Goal/Treatment Plan Need for Continued Stay: Discharge may exacerbated symptoms, Severe functional impairment Progress Toward Problem(s) and Goals/Treatment Plan: Taper with Ativan Gabapentin for augmentation as needed Continue Folic Acid, Thiamine, and Multivitamins Start home meds Enalapril for blood pressure and Pantoprazole for GERD As needed medications Clonidine, Atarax, and Motrin As needed Librium for alcohol withdrawal Risperdal for psychotic symptoms Trazodone for insomnia All risks, benefits and alternatives of the meds discussed, and the pt agreed and understood. Attend groups and activities Supportive therapy and psychoeducation [place] for abstinence CBT for relapse prevention Encourage MAT Refer to outpatient rehab in [place], and self-help groups; patient requested [facility] Teach healthy lifestyle methods, i.e. diet, exercise, meditation Smoking cessation with [place] Nicotine patch if needed
[2018-07-06] MEDS: Pantoprazole 40 mg EC Tab PO SCH (09:39)
[2018-07-06] MEDS: Multiple Vitamins Tab PO SCH (09:39)
[2018-07-07] MEDS: Pantoprazole 40 mg EC Tab PO SCH (09:20)
[2018-07-07] MEDS: Multiple Vitamins Tab PO SCH (09:20)
[2018-07-07 09:21] VITALS: BP 133/90
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
[2018-07-07 10:03] VITALS: PULSE 79; RESP 20; TEMP 99; O2SAT 97
--- NOTE | 2018-07-09 18:14 | PCM.PYCHPN ---
Psychiatric Progress Note - Psychiatric Progress Note Patient seen today, length of contact: 17 min Patient Chief Complaint: "I am better" Problems Identified/Issues Discussed: The pt is seen, chart reviewed, case is discussed with staff. Support and psychoeducation given, CBT and [place] used briefly The pt is improving slowly but needs more time due to severity of symptoms and relapse risk. No SEs from medications, risks discussed.However, she is REFUSING risperdal as she has no insight into her psychosis After care discussed Medication Change: Yes (detox changes daily) Medical Record Reviewed: Yes Mental Status Examination - Cognitive Function Orientation: Person, Place, Situation, Time Memory: Intact Attention: WNL Concentration: Poor Association: WNL Fund of Knowledge: Poor - Mood Mood: Anxious - Affect Affect: Constricted - Speech Speech: Appropriate - Formal Thought Process Formal Thought Process: Delusions, Paranoia, Loosening of associations (mild) - Suicidal Ideation Suicidal Ideation: No - Homicidal Ideation Homicidal Ideation: No Goal/Treatment Plan - Goal/Treatment Plan Need for Continued Stay: Discharge may exacerbated symptoms, Severe functional impairment Progress Toward Problem(s) and Goals/Treatment Plan: Taper with Ativan Gabapentin for augmentation as needed Continue Folic Acid, Thiamine, and Multivitamins Start home meds Enalapril for blood pressure and Pantoprazole for GERD As needed medications Clonidine, Atarax, and Motrin As needed Librium for alcohol withdrawal Risperdal for psychotic symptoms Trazodone for insomnia All risks, benefits and alternatives of the meds discussed, and the pt agreed and understood. Attend groups and activities Supportive therapy and psychoeducation [place] for abstinence CBT for relapse prevention Encourage MAT Refer to outpatient rehab in [place], and self-help groups; patient requested [facility] Teach healthy lifestyle methods, i.e. diet, exercise, meditation Smoking cessation with [place] Nicotine patch if needed
== END 2018-07-07 10:50 | disposition home or self-care (01) | DRG 750 ==
LOC: C.ER 15:26 → C.7D 18:46
PROVIDERS: ADMIT Psychiatry & Neurology Psychiatry; ATTEND Psychiatry & Neurology Psychiatry
PROC: HZ2ZZZZ Detoxification Services for Substance Abuse Treatment (ICD-10-PCS; principal; 2018-07-03)
PROC: HZ52ZZZ Individual Psychotherapy for Substance Abuse Treatment, Cognitive-Behavioral (ICD-10-PCS; 2018-07-03)
PROC: HZ59ZZZ Individual Psychotherapy for Substance Abuse Treatment, Supportive (ICD-10-PCS; 2018-07-03)
PROC: HZ56ZZZ Individual Psychotherapy for Substance Abuse Treatment, Psychoeducation (ICD-10-PCS; 2018-07-03)
PROC: HZ42ZZZ Group Counseling for Substance Abuse Treatment, Cognitive-Behavioral (ICD-10-PCS; 2018-07-03)
PROC: HZ46ZZZ Group Counseling for Substance Abuse Treatment, Psychoeducation (ICD-10-PCS; 2018-07-03)
PROC: GZHZZZZ Group Psychotherapy (ICD-10-PCS; 2018-07-03)
PROC: GZ58ZZZ Individual Psychotherapy, Cognitive-Behavioral (ICD-10-PCS; 2018-07-03)
PROC: GZ56ZZZ Individual Psychotherapy, Supportive (ICD-10-PCS; 2018-07-03)
DX: F10.230 Alcohol dependence with withdrawal, uncomplicated (principal); B19.20 Unspecified viral hepatitis C without hepatic coma; F17.210 Nicotine dependence, cigarettes, uncomplicated; F43.10 Post-traumatic stress disorder, unspecified; G47.00 Insomnia, unspecified; I10 Essential (primary) hypertension; K21.9 Gastro-esophageal reflux disease without esophagitis; F41.9 Anxiety disorder, unspecified; F22 Delusional disorders

== ENCOUNTER 2018-09-12 20:06 | Inpatient (IN) | payer MEDICAID ==
[2018-09-12 20:06] VITALS: BMI 34.3
--- NOTE | 2018-09-12 21:14 | C.PDOC ---
History Of Present Illness 53-year-old female presents to the ED requesting alcohol detox. Patient has history of alcohol abuse and has been evaluated in this ED in the past. Patient denies suicidal/homicidal ideation. Time Seen by Provider: 09/12/18 21:03 Chief Complaint (Nursing): Substance Abuse History Per: Patient History/Exam Limitations: no limitations Onset/Duration Of Symptoms: Hrs Current Symptoms Are (Timing): Still Present Modifying Factor(s): Alcohol Associated Symptoms: denies: Suicidal Thoughts, Suicidal Plan Involuntary Hold By: None Recent travel outside of the [place]: No Additional History Per: Patient Past Medical History Reviewed: Historical Data, Nursing Documentation, Vital Signs Vital Signs: Last Vital Signs Temp 98.1 F 09/12/18 20:37 Pulse 88 09/12/18 20:37 Resp 18 09/12/18 20:37 BP 137/80 09/12/18 20:37 Pulse Ox 100 09/12/18 20:37 Primary Care Provider: Non [facility] Provider, - Medical History PMH: Anxiety, Depression, Gastritis, GERD, Hepatitis (C), Post Traumatic Stress Disorder Denies: Diabetes, HIV, HTN, Chronic Kidney Disease, Seizures, Sexually Tra nsmitted Disease Surgical History: No Surg Hx - [facility] Procedures ALCOHOL DETOXIFICATION (10/09/14) ALCOHOLISM COUNSELLING (08/14/13) DETOXIFICATION SERVICES FOR SUBSTANCE ABUSE TREATMENT (07/03/18) GROUP GRAPHIC ART TECHNICIAN FOR SUBSTANCE ABUSE TREATMENT, PSYCHOEDUCATION (07/03/18) GROUP GRAPHIC ART TECHNICIAN FOR SUBSTANCE ABUSE, COGNITIVE BEHAVIORAL (07/03/18) GROUP PSYCHOTHERAPY (07/03/18) INDIV PSYCHOTHERAPY FOR SUBSTANCE ABUSE TREATMENT, SUPPORT (07/03/18) INDIV PSYCHOTHERAPY FOR SUBSTANCE ABUSE, COGNITIV BEHAVIORAL (07/03/18) INDIV PSYCHOTHERAPY FOR SUBSTANCE ABUSE, PSYCHOEDUCATION (07/03/18) INDIVID PSYCHOTHERAP NEC (07/31/14) INDIVIDUAL PSYCHOTHERAPY, COGNITIVE-BEHAVIORAL (07/03/18) INDIVIDUAL PSYCHOTHERAPY, SUPPORTIVE (07/03/18) INJECT/INFUSE NEC (04/17/14) OTHER GROUP THERAPY (07/31/14) PSYCHIA INTERV/EVAL NEC (08/10/13) Family History: States: Unknown Family Hx - Social History Hx Tobacco Use: Yes Hx Alcohol Use: Yes (Hx ETOH abuse) Hx Substance Use: Yes (Hx polysubstance dependence) - Immunization History Hx Tetanus Toxoid Vaccination: No Hx Influenza Vaccination: No Hx Pneumococcal Vaccination: No Review Of Systems Psych: Positive for: Other (alcohol detox ). Negative for: Suicidal ideation Physical Exam - Physical Exam Appears: Non-toxic, No Acute Distress, Other (pleasant white female ) Skin: Normal Color, Warm, Dry Head: Atraumatic, Normacephalic Oral Mucosa: Moist, Other (alcohol on breath ) Neck: Supple Chest: Symmetrical, No Deformity Respiratory: No Accessory Muscle Use Extremity: Normal ROM Neurological/Psych: Normal Speech, Normal Cognition, Other (cooperative ) ED Course And Treatment - Laboratory Results Result Diagrams: 09/12/18 21:32 09/12/18 21:32 O2 Sat by Pulse Oximetry: 100 (on RA ) Pulse Ox Interpretation: Normal Progress Note: Bloodwork and urinalysis ordered and reviewed. Disposition Doctor Will See Patient In The: Hospital Counseled Patient/Family Regarding: Studies Performed, Diagnosis - Disposition Disposition: HOSPITALIZED Disposition Time: 01:00 Condition: GOOD - Clinical Impression Clinical Impression: Alcohol abuse - Scribe Statement The provider has reviewed the documentation as recorded by the Scribe (Samira Durand) Provider Attestation: All medical record entries made by the Scribe were at my direction and personally dictated by me. I have reviewed the chart and agree that the record accurately reflects my personal performance of the history, physical exam, medical decision making, and the department course for this patient. I have also personally directed, reviewed, and agree with the discharge instructions and disposition.
[2018-09-12 21:35] LABS: BASO # 0.1 K/uL (0.0-0.2); BASO % 1.1 % (0.0-2.0); EOS # 0.1 K/uL (0.0-0.7); EOS % 1.2 % (0.0-4.0); HEMOGLOBIN 11.9 g/dL (11.0-16.0); LYMPH % 43.2 % (20.0-40.0); MEAN CELL VOLUME 93.6 fL (81.0-99.0); MEAN CORPUSCULAR HEMOGLOBIN 32.4 pg (27.0-31.0); MEAN CORPUSCULAR HGB CONC 34.6 g/dL (33.0-37.0); MEAN PLATELET VOLUME 8.3 fL (7.2-11.7); MONO # 0.5 K/uL (0.0-0.8); MONO % 5.5 % (0.0-10.0); NEUT # 4.5 K/uL (1.8-7.0); NRBC % 0.1 % (0.0-2.0); RBC 3.69 Mil/uL (3.80-5.20); RED CELL DISTRIBUTION WIDTH 13.5 % (11.5-14.5); WHITE BLOOD COUNT 9.3 K/uL (4.8-10.8)
[2018-09-12 21:53] LABS: ALB/GLOB RATIO 1.1 (1.0-2.1); ALBUMIN 3.8 g/dL (3.5-5.0); ALT/SGPT 235 U/L (9-52); AST/SGOT 286 U/L (14-36); BLOOD UREA NITROGEN 13 mg/dL (7-17); CALCIUM 8.7 mg/dl (8.6-10.4); GFR NON-AFRICAN AMERICAN > 60
[2018-09-12 23:11] LABS: HCG,QUALITATIVE URINE NEGATIVE (NEGATIVE)
[2018-09-12 23:13] LABS: SQUAMOUS EPITHIAL 3 /hpf (0-5); URINE BACTERIA RARE (<OCC); URINE BILIRUBIN NEGATIVE (NEGATIVE); URINE BLOOD NEGATIVE (NEGATIVE); URINE CLARITY Hazy (Clear); URINE COLOR Yellow (YELLOW); URINE GLUCOSE (UA) NORMAL (Normal); URINE LEUKOCYTE ESTERASE NEG Leu/uL (Negative); URINE PROTEIN NEGATIVE (NEGATIVE)
[2018-09-13 02:56] LABS: BARBITURATES, UR NEGATIVE (NEGATIVE); BENZODIAZEPINES, UR NEGATIVE (NEGATIVE); OPIATES, UR NEGATIVE (NEGATIVE); PHENCYCLIDINE, UR NEGATIVE (NEGATIVE)
--- NOTE | 2018-09-13 05:20 | PCM.BM ---
<Geraldine Moon - Last Filed: 09/13/18 05:19> Treatment Plan Problems - Problems identified on initial assessmt Low Motivation To Change Date Initiated: 09/13/18 Time Initiated: : Assessment reference: NA Status: Active Treatment assets and liabiliti Patient Assests: ADL independent Patient Liabilities: substance abuse - Milieu Protocol Maintain good personal hygiene: daily Encourage regular showers, daily Remind patient to perform daily oral care, daily Assist patient to perform ADL's Conduct patient checks and document Observation sheet: Q15 minutes Maintain personal safety: every shift Educate patient to report safety concerns to staff, every shift Monitor environment for contraband/sharps Medication safety: Monitor for expected outcome, potential side effects: every shift, Assess barriers to learning: every shift, Assess readiness for medication education: every shift <Jessica Sawyer - Last Filed: 09/13/18 13:07> Family Contact Family involvement: No known Family/SO - Goals for Treatment Patient goals for treatment: Complete detox and apply for short-term rehab. Discharge/Continuing Care - Education Needs Education Needs: Patient Medication, Patient Diagnosis/Disease Process, Patient Coping Skills, Patient Anger Management skills, Patient Placement options, Patient Community resources - Discharge Discharge Criteria: No longer exhibiting s/s of withdrawal, Reduction of target symptoms Discharge to:: Substance Abuse Rehab - Treatment Team Participation Patient/Family/SO Statement: 09/13/18 13:08 "I wanna try to go to a 28-day program." Discussed with Family/SO: No Was Patient/Family/SO present at Treatment Team Meeting: Yes <Gibran Mccormick - Last Filed: 09/15/18 13:16> - Diagnosis (1) Alcohol dependence Status: Acute Interventions: 09/15/18 13:16 * Assess 7x/week regarding severity of withdrawal * Educate regarding risks, benefits, side effects and alternatives of medications * Use Motivational Interviewing for abstinence * Use CBT for relapse prevention * Medication management for withdrawal symptoms * Encourage medication assisted treatment *
[2018-09-13] MEDS: Multiple Vitamins Tab PO SCH (09:40)
[2018-09-13] MEDS: Pantoprazole 40 mg EC Tab PO SCH (10:18)
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
[2018-09-14] MEDS: Multiple Vitamins Tab PO SCH (09:14)
[2018-09-14] MEDS: Pantoprazole 40 mg EC Tab PO SCH (09:14)
--- NOTE | 2018-09-14 14:16 | PCM.PYCHPN ---
Psychiatric Progress Note - Psychiatric Progress Note Patient seen today, length of contact: 16 min Patient Chief Complaint: "I am not well" Problems Identified/Issues Discussed: The pt is seen, chart reviewed, case discussed with staff. The pt is compliant with medications and reports no side-effects. Symptoms are improving but needs more time to stabilize. Pt attends groups and activities. Support given, psycho-education provided. After care discussed. Medication Change: Yes (detox changes daily) Medical Record Reviewed: Yes Mental Status Examination - Cognitive Function Orientation: Person, Place, Situation, Time Memory: Intact Attention: WNL Concentration: Poor Association: WNL Fund of Knowledge: WNL - Mood Mood: Depressed, Anxious - Affect Affect: Constricted - Speech Speech: Appropriate - Formal Thought Process Formal Thought Process: Paranoia - Suicidal Ideation Suicidal Ideation: No - Homicidal Ideation Homicidal Ideation: No Goal/Treatment Plan - Goal/Treatment Plan Need for Continued Stay: Discharge may exacerbated symptoms, Severe functional impairment Progress Toward Problem(s) and Goals/Treatment Plan: Taper with Ativan Gabapentin for augmentation as needed Continue Folic Acid, Thiamine, and Multivitamins Start home meds Enalapril for blood pressure and Pantoprazole for GERD As needed medications Clonidine, Atarax, and Motrin As needed Librium for alcohol withdrawal No meds for delusional d/o, refusing meds and meds don;t work as much in thsi condition, needs outpt therapy Trazodone for insomnia All risks, benefits and alternatives of the meds discussed, and the pt agreed and understood. Attend groups and activities Supportive therapy and psychoeducation [place] for abstinence CBT for relapse prevention Encourage MAT Refer to rehab or IOP / self-help groups Teach healthy lifestyle methods, i.e. diet, exercise, meditation Smoking cessation with [place] Nicotine patch if needed
[2018-09-15] MEDS: Pantoprazole 40 mg EC Tab PO SCH (09:14)
[2018-09-15] MEDS: Multiple Vitamins Tab PO SCH (09:14)
[2018-09-15] MEDS ORDERED: Naproxen 550 mg Tab PO PRN (10:30)
--- NOTE | 2018-09-15 11:55 | PCM.PYCHPN ---
Psychiatric Progress Note - Psychiatric Progress Note Patient seen today, length of contact: 16 min Patient Chief Complaint: "I am tired" Problems Identified/Issues Discussed: The pt is seen, chart reviewed, case discussed with staff. Support and psychoeducation given, CBT and [place] used briefly Pt is improving slowly and needs more time, still has ongoing symptoms. No SEs from medications, risks discussed. After care discussed Medication Change: Yes (detox changes daily) Medical Record Reviewed: Yes Mental Status Examination - Cognitive Function Orientation: Person, Place, Situation, Time Memory: Intact Attention: WNL Concentration: Poor Association: WNL Fund of Knowledge: WNL - Mood Mood: Depressed, Anxious - Affect Affect: Constricted - Speech Speech: Appropriate - Formal Thought Process Formal Thought Process: Paranoia - Suicidal Ideation Suicidal Ideation: No - Homicidal Ideation Homicidal Ideation: No Goal/Treatment Plan - Goal/Treatment Plan Need for Continued Stay: Discharge may exacerbated symptoms, Severe functional impairment Progress Toward Problem(s) and Goals/Treatment Plan: Taper with Ativan Gabapentin for augmentation as needed Continue Folic Acid, Thiamine, and Multivitamins Start home meds Enalapril for blood pressure and Pantoprazole for GERD As needed medications Clonidine, Atarax, and Motrin As needed Librium for alcohol withdrawal No meds for delusional d/o, refusing meds and meds don;t work as much in thsi condition, needs outpt therapy Trazodone for insomnia All risks, benefits and alternatives of the meds discussed, and the pt agreed and understood. Attend groups and activities Supportive therapy and psychoeducation [place] for abstinence CBT for relapse prevention Encourage MAT Refer to rehab or IOP / self-help groups Teach healthy lifestyle methods, i.e. diet, exercise, meditation Smoking cessation with [place] Nicotine patch if needed Estimated Date of D/C: 09/18/18
[2018-09-16] MEDS: Pantoprazole 40 mg EC Tab PO SCH (09:28)
[2018-09-16] MEDS: Multiple Vitamins Tab PO SCH (09:29)
[2018-09-16] MEDS ORDERED: Pneumococcal 23-Valent Vaccine IM ONE (10:00)
--- NOTE | 2018-09-16 12:14 | PCM.PYCHPN ---
Psychiatric Progress Note - Psychiatric Progress Note Patient seen today, length of contact: 16 min Patient Chief Complaint: "I am better" Problems Identified/Issues Discussed: The pt is seen again, chart reviewed, and case is discussed with the team. The pt denies any side-effects from meds. Attends activities and groups, brief individual therapy provided Not ready for discharge due to ongoing symptoms and high relapse risk. After care discussed again. Medication Change: Yes (detox changes daily) Medical Record Reviewed: Yes Mental Status Examination - Cognitive Function Orientation: Person, Place, Situation, Time Memory: Intact Attention: WNL Concentration: Poor Association: WNL Fund of Knowledge: WNL - Mood Mood: Depressed, Anxious - Affect Affect: Constricted - Speech Speech: Appropriate - Formal Thought Process Formal Thought Process: Paranoia - Suicidal Ideation Suicidal Ideation: No - Homicidal Ideation Homicidal Ideation: No Goal/Treatment Plan - Goal/Treatment Plan Need for Continued Stay: Discharge may exacerbated symptoms, Severe functional impairment Progress Toward Problem(s) and Goals/Treatment Plan: Taper with Ativan Gabapentin for augmentation as needed Continue Folic Acid, Thiamine, and Multivitamins Start home meds Enalapril for blood pressure and Pantoprazole for GERD As needed medications Clonidine, Atarax, and Motrin As needed Librium for alcohol withdrawal No meds for delusional d/o, refusing meds and meds don;t work as much in thsi condition, needs outpt therapy Trazodone for insomnia All risks, benefits and alternatives of the meds discussed, and the pt agreed and understood. Attend groups and activities Supportive therapy and psychoeducation [place] for abstinence CBT for relapse prevention Encourage MAT Refer to rehab or IOP / self-help groups Teach healthy lifestyle methods, i.e. diet, exercise, meditation Smoking cessation with [place] Nicotine patch if needed Estimated Date of D/C: 09/18/18
[2018-09-17] MEDS: Multiple Vitamins Tab PO SCH (09:31)
[2018-09-17] MEDS: Pantoprazole 40 mg EC Tab PO SCH (09:31)
[2018-09-17 13:43] VITALS: O2SAT 95
[2018-09-17 20:44] VITALS: TEMP 97.9
--- NOTE | 2018-09-18 01:58 | PCM.PYCHPN ---
Psychiatric Progress Note - Psychiatric Progress Note Patient seen today, length of contact: 16 min Patient Chief Complaint: "I am better" Problems Identified/Issues Discussed: The pt is seen again, chart reviewed, and case is discussed with the team. The pt denies any side-effects from meds. Attends activities and groups, brief individual therapy provided Not ready for discharge due to ongoing symptoms and high relapse risk. After care discussed again. Medication Change: Yes (detox changes daily) Medical Record Reviewed: Yes Mental Status Examination - Cognitive Function Orientation: Person, Place, Situation, Time Memory: Intact Attention: WNL Concentration: Poor Association: WNL Fund of Knowledge: WNL - Mood Mood: Depressed, Anxious - Affect Affect: Constricted - Speech Speech: Appropriate - Formal Thought Process Formal Thought Process: Paranoia - Suicidal Ideation Suicidal Ideation: No - Homicidal Ideation Homicidal Ideation: No Goal/Treatment Plan - Goal/Treatment Plan Need for Continued Stay: Discharge may exacerbated symptoms, Severe functional impairment Progress Toward Problem(s) and Goals/Treatment Plan: Taper with Ativan Gabapentin for augmentation as needed Continue Folic Acid, Thiamine, and Multivitamins Start home meds Enalapril for blood pressure and Pantoprazole for GERD As needed medications Clonidine, Atarax, and Motrin As needed Librium for alcohol withdrawal No meds for delusional d/o, refusing meds and meds don;t work as much in thsi condition, needs outpt therapy Trazodone for insomnia All risks, benefits and alternatives of the meds discussed, and the pt agreed and understood. Attend groups and activities Supportive therapy and psychoeducation [place] for abstinence CBT for relapse prevention Encourage MAT Refer to rehab or IOP / self-help groups Teach healthy lifestyle methods, i.e. diet, exercise, meditation Smoking cessation with [place] Nicotine patch if needed Estimated Date of D/C: 09/18/18
[2018-09-18 06:49] VITALS: PULSE 69; RESP 19
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
[2018-09-18] MEDS: Pantoprazole 40 mg EC Tab PO SCH (09:05)
[2018-09-18] MEDS: Multiple Vitamins Tab PO SCH (09:05)
[2018-09-18 09:06] VITALS: BP 103/72
== END 2018-09-18 09:35 | disposition home or self-care (01) | DRG 751 ==
LOC: C.ER 20:06 → C.7D 09-13 00:10
DX: F10.239 Alcohol dependence with withdrawal, unspecified (principal); F13.90 Sedative, hypnotic, or anxiolytic use, unspecified, uncomplicated; I10 Essential (primary) hypertension; K21.9 Gastro-esophageal reflux disease without esophagitis; F17.210 Nicotine dependence, cigarettes, uncomplicated; F43.10 Post-traumatic stress disorder, unspecified; G47.00 Insomnia, unspecified; Y90.7 Blood alcohol level of 200-239 mg/100 ml; Z86.19 Personal history of other infectious and parasitic diseases